=== PATIENT | female | born 1950 | race Two or more races ===

== ENCOUNTER 2017-08-17 09:23 | Outpatient (CLI) | payer OTHER | END 2017-08-17 09:37 | disposition home or self-care (01) | LOC: RAD 501 09:23 | DX: C50.512 Malignant neoplasm of lower-outer quadrant of left female breast (principal) ==

== ENCOUNTER 2018-03-12 07:05 | Day surgery (SDC) | payer OTHER ==
[~2018-03-12] VITALS: Ht 162.6 cm; Wt 56.7 kg
[~2018-03-12 07:05] MED LIST: ANASTROZOLE1 MG PO; SYNTHROID75 MCG PO
== END 2018-03-12 15:05 | disposition home or self-care (01) ==
LOC: CIR.AMB 07:05
DX: C50.812 Malignant neoplasm of overlapping sites of left female breast (principal); Z90.12 Acquired absence of left breast and nipple

== ENCOUNTER 2018-08-26 09:16 | Outpatient (CLI) | payer OTHER | END 2018-08-26 09:37 | disposition home or self-care (01) | LOC: RAD 501 09:16 | DX: C50.512 Malignant neoplasm of lower-outer quadrant of left female breast (principal); I74.5 Embolism and thrombosis of iliac artery ==

== ENCOUNTER 2018-09-10 12:30 | Outpatient (CLI) | payer OTHER | END 2018-09-10 12:42 | disposition home or self-care (01) | LOC: SONOGRAMA 12:30 | DX: C50.412 Malignant neoplasm of upper-outer quadrant of left female breast (principal); N60.11 Diffuse cystic mastopathy of right breast; N60.12 Diffuse cystic mastopathy of left breast ==

== ENCOUNTER 2019-03-07 12:48 | Outpatient (CLI) | payer OTHER | END 2019-03-07 13:00 | disposition home or self-care (01) | LOC: NUCLEAR 12:48 | DX: M81.0 Age-related osteoporosis without current pathological fracture (principal) ==

== ENCOUNTER → 2019-08-22 | Outpatient (CLI) | payer OTHER | END | disposition home or self-care (01) | LOC: RAD 10:28 | DX: C50.512 Malignant neoplasm of lower-outer quadrant of left female breast (principal) ==

== ENCOUNTER → 2019-12-26 | Outpatient (CLI) | payer OTHER | END | disposition home or self-care (01) | LOC: LAB 07:44 | DX: E03.8 Other specified hypothyroidism (principal) ==

== ENCOUNTER → 2020-05-02 | Outpatient (CLI) | payer OTHER | END | disposition home or self-care (01) | LOC: MRI 10:10 | PROVIDERS: ATTEND Physical Medicine & Rehabilitation | DX: M25.562 Pain in left knee (principal) | CPT/HCPCS: 73721 ==

== ENCOUNTER 2020-09-17 10:25 | Outpatient (CLI) | payer OTHER | END 2020-09-17 10:34 | disposition home or self-care (01) | LOC: RAD 10:25 | PROVIDERS: ATTEND Internal Medicine Hematology & Oncology | DX: I70.0 Atherosclerosis of aorta (principal); I10 Essential (primary) hypertension ==

== ENCOUNTER 2021-09-11 09:45 | Outpatient (CLI) | payer OTHER | END 2021-09-11 09:56 | disposition home or self-care (01) | LOC: RAD 09:45 | PROVIDERS: ATTEND Internal Medicine Hematology & Oncology | DX: C50.512 Malignant neoplasm of lower-outer quadrant of left female breast (principal) ==

== ENCOUNTER 2021-10-04 11:10 | Outpatient (CLI) | payer OTHER | END 2021-10-04 11:14 | disposition home or self-care (01) | LOC: NUCLEAR 11:10 | PROVIDERS: ATTEND Obstetrics & Gynecology Maternal & Fetal Medicine | DX: M81.0 Age-related osteoporosis without current pathological fracture (principal) ==

== ENCOUNTER 2022-08-12 10:32 | Outpatient (CLI) | payer OTHER | END 2022-08-12 10:40 | disposition home or self-care (01) | LOC: RAD 10:32 | PROVIDERS: ATTEND Internal Medicine Hematology & Oncology | DX: C50.512 Malignant neoplasm of lower-outer quadrant of left female breast (principal) ==

== ENCOUNTER 2022-08-21 13:22 | Outpatient (CLI) | payer OTHER | END 2022-08-21 13:26 | disposition home or self-care (01) | LOC: EKG 13:22 → LAB 13:22 | PROVIDERS: ATTEND Specialist | DX: Z01.818 Encounter for other preprocedural examination (principal); I11.9 Hypertensive heart disease without heart failure ==

== ENCOUNTER → 2022-09-05 | Outpatient (CLI) | payer OTHER | END | disposition home or self-care (01) | LOC: SONOGRAMA 10:27 | PROVIDERS: ATTEND Obstetrics & Gynecology Maternal & Fetal Medicine | DX: M67.441 Ganglion, right hand (principal) ==

== ENCOUNTER 2023-10-06 12:57 | Outpatient (CLI) | payer OTHER | END 2023-10-06 12:59 | disposition home or self-care (01) | LOC: NUCLEAR 12:57 | PROVIDERS: ATTEND Obstetrics & Gynecology Maternal & Fetal Medicine | DX: M81.0 Age-related osteoporosis without current pathological fracture (principal) ==